=== PATIENT | female | born 1980 | race African-American/Black ===

== ENCOUNTER 2016-08-23 09:10 | Observation (INO) | payer MEDICAID ==
[2016-08-23] VITALS (9 sets, daily range): BP systolic 159–204; BP diastolic 79–149; PULSE 89–102; RESP 17–18; TEMP 96.7–98.8; O2SAT 95–99
[~2016-08-23] VITALS: Ht 177.8 cm; Wt 64.0 kg
[~2016-08-23 09:10] MED LIST: 1-ME1LIQ PO; BENA25TA8 PO; METH4TAB6 PO; METO100T PO; MMW SS; PRED50TA PO; RANI150 PO
[2016-08-23] MEDS ORDERED: hydrALAZINE HCL 20 MG/ML VIAL IV PUSH ONE (09:30)
[2016-08-23] MEDS ORDERED: ASPIRIN 325 MG TAB PO ONE (09:30)
[2016-08-23] MEDS ORDERED: NITROGLYCERIN 0.4 MG SL 25 TABS/BTL SL PRN ×2 (09:30→13:30)
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
--- NOTE | 2016-08-23 09:53 | RADRPT ---
EXAM DATE/TIME: 08/23/2016 09:31 [facility] COMPARISON: No previous studies available for comparison. INDICATIONS : Cough. Short of breath. MEDICAL HISTORY : None. SURGICAL HISTORY : None. ENCOUNTER: Initial ACUITY: 2 days PAIN SCORE: 0/10 LOCATION: Bilateral chest FINDINGS: A single view of the chest demonstrates the lungs to be symmetrically aerated with prominent anterior disc into interstitial markings suggesting some degree of vascular congestion or volume overload. He art size is prominent. Osseous structures are intact. CONCLUSION: 1. Cardiomegaly with interstitial prominence characteristic of vascular congestion or volume overload /CHF. 2. No confluent infiltrate Hiren Herrera MD on August 23, 2016 at 9:50 Board Certified Radiologist. This report was verified electronically.
[2016-08-23 09:56] LABS: AUTOMATED NEUTROPHIL # 6.9 TH/MM3 (1.8-7.7); BACTERIA, URINE OCC /hpf; BASOPHIL % 0.4 % (0.0-2.0); BLOOD, URINE NEG (NEG); COMMENT (UR) CULT NOT INDICATED; CULTURE IF INDICATED CULT NOT INDICATED; EOSINOPHIL % 0.4 % (0.0-4.0); GLUCOSE,URINE NEG (NEG); HEMATOCRIT 37.4 % (35.0-46.0); KETONE, URINE 10 mg/dL (NEG); LYMPH % 12.1 % (9.0-44.0); LYMPHOCYTE # 1.1 TH/MM3 (1.0-4.8); MEAN CELL VOLUME 81.6 FL (80.0-100.0); MEAN CORPUSCULAR HEMOGLOBIN 26.8 PG (27.0-34.0); MEAN CORPUSCULAR HGB CONC 32.9 % (32.0-36.0); MONO % 7.2 % (0.0-8.0); NEUT % 79.9 % (16.0-70.0); NITRITE,URINE NEG (NEG); PLATELET COUNT 206 TH/MM3 (150-450); RED BLOOD COUNT 4.59 MIL/MM3 (4.00-5.30); RED CELL DISTRIBUTION WIDTH 17.7 % (11.6-17.2); SQUAMOUS EPITHELIAL CELL URINE 4 /hpf (0-5); URINE COLOR LIGHT-YELLOW (YELLW/STRAW); WHITE BLOOD COUNT 8.7 TH/MM3 (4.0-11.0)
[2016-08-23 10:03] LABS: HEMO FLAGS AUTO DIFF
[2016-08-23 10:06] LABS: PROTHROMBIN TIME - PATIENT 11.1 SEC (9.8-11.6)
[2016-08-23] MEDS ORDERED: MORPHINE SULFATE 4 MG/ML INJ IV PUSH ONE (10:15)
[2016-08-23] MEDS: SODIUM CHLORIDE 0.9% FLUSH 5 ML FLUSH IVF PRN ×2 (10:22→10:53)
[2016-08-23 10:28] LABS: BICARBONATE 22.5 MEQ/L (21.0-32.0); INDIRECT BILIRUBIN 0.4 MG/DL (0.0-0.8); TOTAL BILIRUBIN ADULT 0.5 MG/DL (0.2-1.0)
[2016-08-23 10:41] LABS: PLATELET ESTIMATE SMEAR NORMAL (NORMAL); PLATELET MORPHOLOGY ENLARGED (NORMAL); SCAN/DIFF AUTO DIFF CONFIRMED
[2016-08-23] MEDS ORDERED: FUROSEMIDE 40 MG/4 ML VIAL IV PUSH ONE (11:00)
[2016-08-23] MEDS ORDERED: IOHEXOL 350 MG/ML 10 ML VIAL (for RAD DIAG) IV ONE ×2 (11:12→17:51)
--- NOTE | 2016-08-23 13:06 | RADRPT ---
EXAM DATE/TIME: 08/23/2016 10:52 [facility] COMPARISON: CHEST SINGLE AP, August 23, 2016, 9:31. INDICATIONS : Right upper and lower abdominal pain x 1 week. IV CONTRAST: 70 cc Omnipaque 350 (iohexol) IV ORAL CONTRAST: No oral contrast ingested. RADIATION DOSE: 4.58 CTDIvol (mGy) MEDICAL HISTORY : Hepatitis C. Hypertension. SURGICAL HISTORY : None. ENCOUNTER: Initial ACUITY: 1 week PAIN SCALE: 5/10 LOCATION: Right abdomen TECHNIQUE: Volumetric scanning of the abdomen and pelvis was performed. Using automated exposure control and ad justment of the mA and/or kV according to patient size, radiation dose was kept as low as reasonably achievable to obtain optimal diagnostic quality images. FINDINGS: LOWER LUNGS: There is a small right pleural effusion. LIVER: Homogeneous density without lesion. There is no dilation of the biliary tree. No calcified [place] es. SPLEEN: Normal size without lesion. PANCREAS: Within normal limits. KIDNEYS: Normal in size and shape. There is no mass, stone or hydronephrosis. ADRENAL GLANDS: Within normal limits. VASCULAR: There is no aortic aneurysm. BOWEL/MESENTERY: The stomach, small bowel, and colon demonstrate no acute abnormality. There is no free intraperitone al air or fluid. The appendix is seen and appears normal. ABDOMINAL WALL: Within normal limits. RETROPERITONEUM: There is no lymphadenopathy. BLADDER: No wall thickening or mass. REPRODUCTIVE: Peripherally calcified masses involving the uterus consistent with fibroids. Small volume of probable physiologic pelvic fluid INGUINAL: There is no lymphadenopathy or hernia. MUSCULOSKELETAL: Within normal limits for patient age. CONCLUSION: Right pleural effusion. Fibroid uterus. Probable physiologic free pelvic fluid. Nicolas Rhodes MD on August 23, 2016 at 12:56 Board Certified Radiologist. This report was verified electronically.
[2016-08-23] MEDS ORDERED: ONDANSETRON HCL 4 MG/2 ML VIAL IV PRN (13:30)
[2016-08-23] MEDS ORDERED: ACETAMINOPHEN 500 MG CPLT PO PRN (13:30)
[2016-08-23] MEDS ORDERED: amLODIPine BESYLATE 5 MG TAB PO ONE ×2 (13:30→16:30)
[2016-08-23] MEDS: SODIUM CHLORIDE 0.9% FLUSH 5 ML FLUSH IVF SCH (13:48)
--- NOTE | 2016-08-23 14:19 | EKG ---
Date Performed: 08/23/2016 Time Performed: 09:44:48 PTAGE: 35 years EKG: Sinus rhythm POSSIBLE LEFT ATRIAL ENLARGEMENT NONSPECIFIC ST & T-WAVE ABNORMALITY ABNORMAL ECG INTERPRETATION BAS ED ON A DEFAULT AGE OF 41 YEARS PREVIOUS TRACING : 11/10/2013 08.22 Compared to prior tracing no significant change DOCTOR: Randy Saini Interpretating Date/Time 08/23/2016 14:16:54
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
[2016-08-23] MEDS ORDERED: POTASSIUM CHLORIDE 20 MEQ CONTROLLED RELEASE TAB PO ONE (16:00)
[2016-08-23] MEDS ORDERED: cloNIDine HCL 0.2 MG TAB PO PRN (16:30)
[2016-08-23] MEDS ORDERED: NORA0.35 PO (16:57)
[2016-08-23] MEDS: LISINOPRIL 10 MG TAB PO SCH (16:58)
[2016-08-23 17:04] LABS: BETA HCG QUANT LESS THAN 1 MIU/ML (0-5)
[2016-08-23] MEDS ORDERED: LORazepam 2 MG TAB PO PRN (17:15)
[2016-08-23] MEDS ORDERED: HALOPERIDOL LACTATE 5 MG/ML AMP IM PRN (17:15)
[2016-08-23] MEDS ORDERED: LORazepam 2 MG/ML VIAL IV PUSH PRN ×4 (17:15)
[2016-08-23] MEDS ORDERED: LORazepam 1 MG TAB PO PRN (17:15)
[2016-08-23] MEDS ORDERED: FLUMAZENIL 0.5 MG/5 ML VIAL IV PUSH PRN (17:15)
--- NOTE | 2016-08-23 18:02 | RADRPT ---
EXAM DATE/TIME: 08/23/2016 17:42 [facility] COMPARISON: No previous studies available for comparison. INDICATIONS : Cheat pain. Evaluate for emboli. eLEVATED d-dIMER. IV CONTRAST: 50 cc Omnipaque 350 (iohexol) IV RADIATION DOSE: 5.21 CTDIvol (mGy) MEDICAL HISTORY : Cardiovascular disease. Hypertension. Hepatitis C. SURGICAL HISTORY : None. ENCOUNTER: Initial ACUITY: 1 day PAIN SCALE: 0/10 LOCATION: chest TECHNIQUE: Volumetric scanning of the chest was performed using a pulmonary embolism protocol MIP images were re constructed. Using automated exposure control and adjustment of the mA and/or kV according to patien t size, radiation dose was kept as low as reasonably achievable to obtain optimal diagnostic quality images. FINDINGS: PULMONARY ARTERIES: No filling defects are seen in the pulmonary arteries through the segmental level. LUNGS: There is no consolidation or pneumothorax . No concerning pulmonary nodule is visualized. PLEURAE: Minimal pleural thickening posteriorly in the right mid hemithorax. MEDIASTINUM: There is good visualization of the great vessels of the middle mediastinum. No evidence of mediastin al or hilar adenopathy/mass. MUSCULOSKELETAL: Within normal limits for patient age. MISCELLANEOUS: The visualized upper abdominal organs demonstrate no acute abnormality. CONCLUSION: 1. Minimal, nonspecific pleural thickening in the right posterior hemithorax. 2. Otherwise negative. No acute infiltrates or pulmonary embolus to explain current clinical symptoms . Hiren Herrera MD on August 23, 2016 at 17:58 Board Certified Radiologist. This report was verified electronically.
[2016-08-23 18:30] LABS: AMPHETAMINE, URINE NEG (NEG); BARBITURATES, URINE NEG (NEG); COCAINE, URINE POS (NEG)
[2016-08-24] VITALS (9 sets, daily range): BP systolic 134–170; BP diastolic 74–121; PULSE 84–94; RESP 18–19; TEMP 97.5–98.9; O2SAT 95–100
[2016-08-24 05:06] LABS: BICARBONATE 24.3 MEQ/L (21.0-32.0); POTASSIUM 3.7 MEQ/L (3.5-5.1)
[2016-08-24] MEDS: LISINOPRIL 10 MG TAB PO SCH (08:01)
[2016-08-24] MEDS: SODIUM CHLORIDE 0.9% FLUSH 5 ML FLUSH IVF SCH (08:02)
--- NOTE | 2016-08-24 08:59 | PD.CARD.PN ---
Subjective Subjective Remarks Offers no complaint. Feeling better. Objective Vital Signs / I&O Vital Signs Date Time Temp Pulse Resp B/P Pulse Ox O2 Delivery O2 Flow Rate FiO2 08/24/16 08:18 95 Nasal Cannula 2.00 08/24/16 07:38 98.9 91 19 162/112 95 158/100 08/24/16 04:25 84 08/24/16 03:59 97.8 89 18 147/87 98 08/24/16 00:16 98.0 87 18 134/74 97 08/24/16 00:04 94 08/23/16 20:15 89 08/23/16 19:28 98 Nasal Cannula 2.00 08/23/16 19:20 98.8 101 18 159/79 98 08/23/16 18:20 102 08/23/16 16:21 94 174/119 08/23/16 16:17 96.7 90 18 170/112 99 08/23/16 16:04 97 Nasal Cannula 2 08/23/16 15:45 164/79 08/23/16 10:45 98.4 94 194/149 Nasal Cannula 2 08/23/16 09:15 98.2 94 17 204/149 95 Physical Exam Gen.: No apparent distress. Cardiac: Regular rate and rhythm without murmur gallop or rub. Respiratory: Clear to auscultate bilaterally. GI: Nontender. Normal bowel sounds. Abdomen soft. Laboratory Laboratory Tests Test 08/23/16 08/23/16 08/23/16 08/23/16 09:30 11:10 14:00 15:05 White Blood Count 8.7 TH/MM3 Red Blood Count 4.59 MIL/MM3 Hemoglobin 12.3 GM/DL Hematocrit 37.4 % Mean Corpuscular Volume 81.6 FL Mean Corpuscular Hemoglobin 26.8 PG Mean Corpuscular Hemoglobin 32.9 % Concent Red Cell Distribution Width 17.7 % Platelet Count 206 TH/MM3 Mean Platelet Volume 9.2 FL Neutrophils (%) (Auto) 79.9 % Lymphocytes (%) (Auto) 12.1 % Monocytes (%) (Auto) 7.2 % Eosinophils (%) (Auto) 0.4 % Basophils (%) (Auto) 0.4 % Neutrophils # (Auto) 6.9 TH/MM3 Lymphocytes # (Auto) 1.1 TH/MM3 Monocytes # (Auto) 0.6 TH/MM3 Eosinophils # (Auto) 0.0 TH/MM3 Basophils # (Auto) 0.0 TH/MM3 CBC Comment AUTO DIFF Differential Comment AUTO DIFF CONFIRMED Platelet Estimate NORMAL Platelet Morphology Comment ENLARGED Prothrombin Time 11.1 SEC Prothromb Time International 1.0 RATIO Ratio Activated Partial 24.0 SEC Thromboplast Time Urine Color LIGHT-YELLOW Urine Turbidity CLEAR Urine pH 7.0 Urine Specific [place] 1.008 Urine Protein NEG mg/dL Urine Glucose (UA) NEG mg/dL Urine Ketones 10 mg/dL Urine Occult Blood NEG Urine Nitrite NEG Urine Bilirubin NEG Urine Urobilinogen LESS THAN 2.0 MG/DL Urine Leukocyte Esterase SMALL Urine RBC LESS THAN 1 /hpf Urine WBC 4 /hpf Urine Squamous Epithelial 4 /hpf Cells Urine Bacteria OCC /hpf Microscopic Urinalysis Comment CULT NOT INDICATED Sodium Level 135 MEQ/L Potassium Level 6.0 MEQ/L 3.4 MEQ/L Chloride Level 103 MEQ/L Carbon Dioxide Level 22.5 MEQ/L Anion Gap 10 MEQ/L Blood Urea Nitrogen 12 MG/DL Creatinine 0.82 MG/DL Estimat Glomerular Filtration 97 ML/MIN Rate Random Glucose 87 MG/DL Calcium Level 9.1 MG/DL Total Bilirubin 0.5 MG/DL Direct Bilirubin 0.1 MG/DL Indirect Bilirubin 0.4 MG/DL Aspartate Amino Transf 59 U/L (AST/SGOT) Alanine Aminotransferase 34 U/L (ALT/SGPT) Alkaline Phosphatase 97 U/L Troponin I 0.03 NG/ML 0.02 NG/ML B-Type Natriuretic Peptide 358 PG/ML Total Protein 7.6 GM/DL Albumin 3.6 GM/DL Lipase 66 U/L Urine Opiates Screen NEG Urine Barbiturates Screen NEG Urine Amphetamines Screen NEG Urine Benzodiazepines Screen NEG Urine Cocaine Screen POS Urine Cannabinoids Screen NEG Human Chorionic Gonadotropin, LESS THAN 1 Quant MIU/ML Ethyl Alcohol Level LESS THAN 3 MG/DL D-Dimer Quantitative (PE/DVT) 0.85 MG/L FEU Test 08/23/16 08/23/16 08/24/16 17:10 19:00 04:15 Troponin I 0.03 NG/ML Erythrocyte Sedimentation Rate 1 mm/hr Sodium Level 142 MEQ/L Potassium Level 3.7 MEQ/L Chloride Level 108 MEQ/L Carbon Dioxide Level 24.3 MEQ/L Anion Gap 10 MEQ/L Blood Urea Nitrogen 12 MG/DL Creatinine 0.88 MG/DL Estimat Glomerular Filtration 89 ML/MIN Rate Random Glucose 74 MG/DL Calcium Level 9.2 MG/DL Imaging Last 48 hours Impressions Abdomen/Pelvis CT 08/23/16 0922 Signed Impressions: Service Date/Time: Tuesday, August 23, 2016 10:52 - CONCLUSION: Right pleural effusion. Fibroid uterus. Probable physiologic free pelvic fluid. Nicolas Rhodes MD Chest X-Ray 08/23/16 0000 Signed Impressions: Service Date/Time: Tuesday, August 23, 2016 09:31 - CONCLUSION: 1. Cardiomegaly with interstitial prominence characteristic of vascular congestion or volume overload/CHF. 2. No confluent infiltrate Hiren Herrera MD CT Angiography 08/23/16 0000 Signed Impressions: Service Date/Time: Tuesday, August 23, 2016 17:42 - CONCLUSION: 1. Minimal, nonspecific pleural thickening in the right posterior hemithorax. 2. Otherwise negative. No acute infiltrates or pulmonary embolus to explain current clinical symptoms. Hiren Herrera MD Assessment and Plan Assessment and Plan * Chest pain: Patient had serial cardiac enzymes and EKGs for ruling out purposes. She is asymptomatic. EKGs are nonspecific T wave changes. She was seen by Dr. Orozco this morning. A 2-D echo is ordered as well as a Lexiscan. Disposition will be pending these results. She should follow with her primary care physician after discharge. * Hypertension: Patient was noncompliant with her medications. We will restart these. * Substance abuse: Patient has been counseled on importance of no longer using cocaine. * Tobacco abuse: Patient has been counseled on the importance of smoking cessation. Patient is stable at this time. She is agreeable to this plan. 2-D echo has been read and report states left ventricle cavity size mildly to moderately dilated. Wall thickness was normal. Ejection fraction 25-30%. Diffuse hypokinesis, more pronounced in the inferior septal and anterior regions. Mild mitral valve regurgitation. Trace to mild tricuspid valve regurgitation. Lexiscan has been read by radiologist as global hypokinesis with left ventricular ejection fraction equaling 30%. Small fixed defect involving the cardiac apex ingesting a small LAD infarct. No reversible defects to suggest ischemia. These findings were discussed with Dr. Orozco. Medical management will be utilized and she will need to follow-up with a primary care physician as well as a tribal judge. We will increase lisinopril to 20 mg daily. Lasix 40 mg daily and K-Tabs 20 mEq daily. Would like to start on carvedilol however she has been using cocaine. Dr. Jay Trejo has agreed to follow the patient after discharge. Hopefully on follow-up evaluation she will have been able to stop using cocaine and maybe start beta jinny. She has been advised to modify her lifestyle. She is to stopping alcohol, stop smoking cigarettes, and no longer use illicit drugs. Joe Shepherd Aug 24, 2016 08:58
[2016-08-24] MEDS ORDERED: ASPIRIN 325 MG TAB PO SCH (09:00)
--- NOTE | 2016-08-24 10:40 | EC ---
Study Study Date:08/24/2016 STUDY CONCLUSIONS SUMMARY - Procedure narrative: Transthoracic echocardiography. Image quality was adequate. Scanning was performed from the parasternal, apical, and subcostal acoustic windows. - Left ventricle: The cavity size was mildly to moderately dilated. Wall thickness was normal. Systolic function was severely reduced. The estimated ejection fraction was in the range of 25% to 30%. Diffuse hypokinesis, more pronounced in the inferior, septal and anterior regions.. - Mitral valve: Mild regurgitation. - Tricuspid valve: Trace to mild regurgitation. - Pulmonary arteries: PA peak pressure: 41mm Hg (S). If LV function is below 40, please consider prescribing an ACEI or ARB or document rationale for non-use. PROCEDURE DATA STUDY STATUS: Elective. Procedure: Transthoracic echocardiography. Image quality was adequate. Scanning was performed from the parasternal, apical, and subcostal acoustic windows. Study completion: The patient tolerated the procedure well. Transthoracic echocardiography. M-mode, complete 2D, complete spectral Doppler, and color Doppler. Patient status: Inpatient. CARDIAC ANATOMY LEFT VENTRICLE: The cavity size was mildly to moderately dilated. Wall thickness was normal. Systolic function was severely reduced. The estimated ejection fraction was in the range of 25% to 30%. Diffuse hypokinesis, more pronounced in the inferior, septal and anterior regions.. AORTIC VALVE: Trileaflet; normal thickness leaflets. Doppler: Transvalvular velocity was within the normal range. There was no stenosis. No regurgitation. AORTA: Aortic root: The aortic root was normal in size. MITRAL VALVE: Structurally normal valve. Doppler: Transvalvular velocity was within the normal range. There was no evidence for stenosis. Mild regurgitation. Peak gradient: 2mm Hg (D). LEFT ATRIUM: The atrium was normal in size. RIGHT VENTRICLE: The cavity size was normal. Wall thickness was normal. PULMONIC VALVE: Doppler: Transvalvular velocity was within the normal range. There was no evidence for stenosis. No regurgitation. TRICUSPID VALVE: Structurally normal valve. Doppler: Transvalvular velocity was within the normal range. Trace to mild regurgitation. PULMONARY ARTERY: The main pulmonary artery was normal-sized. Systolic pressure was within the normal range. RIGHT ATRIUM: The atrium was normal in size. PERICARDIUM: There was no pericardial effusion. SYSTEMIC VEINS: Inferior vena cava: The vessel was normal in size. BASIC MEASUREMENTS ADULT Normal Left ventricle LV internal dimension, ED, chordal level, *60.2 mm 43-52 PLAX LV internal dimension, ES, chordal level, *54 mm 23-38 PLAX Fractional shortening, chordal level, PLAX *10 % >29 LV posterior wall thickness, ED 11.1 mm IVS/LVPW ratio, ED 1.01 <1.3 Volume, ED, MOD, 1-plane 161 ml Volume, ES, MOD, 1-plane 103 ml Ejection fraction, MOD, 1-plane 36 % Stroke volume, MOD, 1-plane 58 ml Volume, ED, MOD, 2-plane 176 ml Volume, ES, MOD, 2-plane 105 ml Ejection fraction, MOD, 2-plane 40 % Stroke volume, MOD, 2-plane 71 ml Ventricular septum Septal thickness, ED 11.2 mm Aortic valve Leaflet separation 22 mm 15-26 Left atrium Anterior-posterior dimension 42 mm Right ventricle RV internal dimension, ED, PLAX 25.7 mm 19-38 BASIC MEASUREMENTS ADULT Normal Aortic valve Leaflet separation 22 mm 15-26 Aorta Root diameter, ED 31 mm 20-37 DOPPLER MEASUREMENTS ADULT Normal Main pulmonary artery Pressure, S *41 mm Hg =30 Mitral valve Peak E-wave velocity 78.5 cm/s Peak A-wave velocity 50.3 cm/s Peak gradient, D 2 mm Hg Peak E/A ratio 1.6 Tricuspid valve Regurgitant peak velocity 278 cm/s Peak RV-RA gradient, S 31 mm Hg Maximal regurgitant velocity 278 cm/s Systemic veins Estimated CVP 10 mm Hg Right ventricle RV pressure, S *41 mm Hg <30 LEGEND: Mean values are shown as u=mean value. Asterisk (*) quick values outside specified normal range. Prepared and signed by Mahendra Adams [id number]
[2016-08-24] MEDS ORDERED: REGADENOSON INJ 0.4 MG/5 ML SYR ONE (12:03)
--- NOTE | 2016-08-24 14:26 | RADRPT ---
EXAM DATE/TIME: 08/24/2016 11:31 [facility] COMPARISON: No previous studies available for comparison. INDICATIONS : Shortness of breath with chest tightness for two weeks. Angina. DOSE: 27.1 mCi Tc99m Myoview at stress. 8.8 mCi Tc99m Myoview at rest. 0.4 mg Lexiscan STRESS SYMPTOMS: Dyspnea and headache. EJECTION FRACTION: 30% MEDICAL HISTORY : Hypertension. Hepatitis C. SURGICAL HISTORY : None. ENCOUNTER: Initial ACUITY: 3 weeks PAIN SCALE: 4/10 LOCATION: Bilateral chest TECHNIQUE: The patient underwent pharmacologic stress with infusion of prescribed dose. Continuous ECG tracing was monitored during stress. Gated SPECT imaging was performed after stress and conventional SPECT i maging was performed at rest. The examination was performed on a SPECT/CT scanner, both attenuation and non-corrected datasets were reviewed. FINDINGS: The gated Cine-loop images demonstrate global hypokinesis. The left ventricular ejection fraction is calculated at 30%. The cardiac SPECT stress and rest images demonstrate a small fixed defect involving the cardiac apex suggesting possible small apical infarct. No reversible defects are noted to suggest ischemia. CONCLUSION: 1. Global hypokinesis with left ventricular ejection fraction equaling 30%. 2. Small fixed defect involving the cardiac apex suggesting a small LAD infarct. 3. No reversible defects to suggest ischemia. RISK CATEGORY: High risk (greater than 3% annual mortality rate). Cruz Tim MD on August 24, 2016 at 14:04 Board Certified Radiologist. This report was verified electronically.
[2016-08-24] MEDS ORDERED: FURO1TAB60 PO (16:49)
[2016-08-24] MEDS ORDERED: POTA1TAB4 PO (16:49)
[2016-08-24] MEDS ORDERED: LISI-515 PO (16:49)
--- NOTE | 2016-08-24 16:51 | EKG ---
Date Performed: 08/23/2016 Time Performed: 18:10:35 PTAGE: 35 years EKG: Sinus rhythm POSSIBLE LEFT ATRIAL ENLARGEMENT NONSPECIFIC ST & T-WAVE ABNORMALITY ABNORMAL ECG Since PREVIOUS TRACING , no significant change noted PREVIOUS TRACIN08/23/2016 09.44 DOCTOR: Joi Orozco Interpretating Date/Time 08/24/2016 16:51:03
--- NOTE | 2016-08-24 16:55 | TR ---
Date Performed: 08/24/2016 Time Performed: 12:12:08 DOCTOR: Joi Orozco DRUG LIST: CLINICAL HISTORY: REASON FOR TEST: REASON FOR ENDING: OBSERVATION: CONCLUSION: Lexiscan stress test was performed under standard four minute protocol. Radionuclid e was injected one minute prior to ending the test. No electrocardiographic abormalities were present to suggest ischemia. Nuclear imaging and interpretation are pending. COMMENTS:
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
== END 2016-08-24 19:02 | disposition home or self-care (01) ==
LOC: NEPA 09:10 → NEDA 12:25 → NEPGCP 16:09
PROVIDERS: ADMIT Internal Medicine Cardiovascular Disease; ATTEND Internal Medicine Cardiovascular Disease
DX: R07.9 Chest pain, unspecified (principal); I10 Essential (primary) hypertension; B19.20 Unspecified viral hepatitis C without hepatic coma; R06.02 Shortness of breath; F17.210 Nicotine dependence, cigarettes, uncomplicated; R05 Cough; R10.9 Unspecified abdominal pain; I50.9 Heart failure, unspecified; R00.2 Palpitations; Z91.14 Patient's other noncompliance with medication regimen; H54.8 Legal blindness, as defined in USA; F14.90 Cocaine use, unspecified, uncomplicated; F10.10 Alcohol abuse, uncomplicated; I34.0 Nonrheumatic mitral (valve) insufficiency
CPT/HCPCS: 71010; 71275; 74177; 78452; 80048; 80076; 80307; 81001; 83690; 83880; 84132; 84484; 84702; 84703; 85025; 85379; 85610; 85652; 85730; 93005; 93017; 93306; 96374; 96375; 99285; A9502; G0378; J0360; J1940; J2270; J2785; Q9967

== ENCOUNTER 2016-10-23 08:17 | Inpatient (IN) | payer MEDICAID ==
[~2016-10-23] VITALS: Ht 177.8 cm; Wt 64.8 kg
[2016-10-23] VITALS (9 sets, daily range): BP systolic 137–168; BP diastolic 84–110; PULSE 70–86; RESP 16–18; TEMP 96.5–98.9; O2SAT 98–100
[~2016-10-23 08:17] MED LIST changes: -1-ME1LIQ PO; -BENA25TA8 PO; +FURO1TAB60 PO; +LISI-515 PO; -METH4TAB6 PO; -METO100T PO; -MMW SS; +NORA0.35 PO; +POTA1TAB4 PO; -PRED50TA PO; -RANI150 PO
[2016-10-23] MEDS ORDERED: CARV12.52 PO (08:32)
[2016-10-23] MEDS ORDERED: KETOROLAC TROMETHAMINE 30 MG/ML (IVP) VIAL IVP ONE (08:45)
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
[2016-10-23] MEDS: SODIUM CHLORIDE 0.9% FLUSH 10 ML FLUSH IV FLUSH PRN ×3 (08:51→13:05)
[2016-10-23 09:19] LABS: AUTOMATED NEUTROPHIL # 22.7 TH/MM3 (1.8-7.7); BASOPHIL # 0.1 TH/MM3 (0-0.2); BASOPHIL % 0.2 % (0.0-2.0); HEMO FLAGS DIFF FINAL; LYMPHOCYTE # 1.8 TH/MM3 (1.0-4.8); MEAN CELL VOLUME 80.9 FL (80.0-100.0); MEAN CORPUSCULAR HGB CONC 32.1 % (32.0-36.0); MONO % 5.3 % (0.0-8.0); NEUT % 87.5 % (16.0-70.0); PLATELET COUNT 235 TH/MM3 (150-450); RED CELL DISTRIBUTION WIDTH 17.9 % (11.6-17.2)
[2016-10-23 09:33] LABS: BACTERIA, URINE OCC /hpf; BLOOD, URINE NEG (NEG); COMMENT (UR) CULTURE INDICATED; CULTURE IF INDICATED CULTURE INDICATED; GLUCOSE,URINE NEG (NEG); KETONE, URINE NEG (NEG); MUCUS URINE FEW /lpf (OCC); NITRITE,URINE NEG (NEG); SQUAMOUS EPITHELIAL CELL URINE 7 /hpf (0-5); URINE COLOR YELLOW (YELLW/STRAW)
[2016-10-23 09:52] LABS: ALKALINE PHOSPHATASE 96 U/L (45-117); ALT (GPT) 28 U/L (10-53); ANION GAP 10 MEQ/L (5-15); AST (GOT) 35 U/L (15-37); BLOOD UREA NITROGEN 7 MG/DL (7-18); CHLORIDE 102 MEQ/L (98-107); GLOMERULAR FILTRATION RATE 79 ML/MIN (>89); POTASSIUM 4.4 MEQ/L (3.5-5.1); SODIUM (NA) 136 MEQ/L (136-145); TOTAL BILIRUBIN ADULT 0.7 MG/DL (0.2-1.0)
[2016-10-23] MEDS ORDERED: metroNIDAZOLE 500 MG TAB PO ONE (10:00)
[2016-10-23] MEDS ORDERED: AZITHROMYCIN PWD FOR SUSP 1 GM PACKET PO ONE (10:00)
[2016-10-23] MEDS ORDERED: MORPHINE SULFATE 8 MG/ML INJ IV PUSH ONE (11:15)
[2016-10-23] MEDS ORDERED: ONDANSETRON HCL 4 MG/2 ML VIAL IV PUSH ONE (11:45)
[2016-10-23] MEDS ORDERED: SODIUM CHLOR 0.9% 1000 ML INJ 1,000 ML IV ONE (12:15)
[2016-10-23 12:17] LABS: CHLAMYDIA PCR NOT DETECTED (NOT DETECT); NEISSERIA PCR DETECTED (NOT DETECT)
--- NOTE | 2016-10-23 12:43 | RADRPT ---
EXAM DATE/TIME: 10/23/2016 11:09 [facility] COMPARISON: No previous studies available for comparison. INDICATIONS : Pelvic pain. MEDICAL HISTORY : Hypertension. Congestive heart failure. Hepatitis C. Left glaucoma. Fibroids. SURGICAL HISTORY : Left eye tube shunt placement. Liver biopsy. ENCOUNTER: Initial ACUITY: 2 days PAIN SCORE: 8/10 LOCATION: Bilateral pelvis MEASUREMENTS: UTERUS: 8.2 x 5.3 x 3.3 cm ENDOMETRIAL STRIPE: 6 mm RIGHT OVARY: 3.7 x 1.8 x 1.2 cm LEFT OVARY: 5.1 x 3.1 x 3.0 cm COMPLETE APPROPRIATE ITEMS PRE PROCEDURE: ID x 2: Complete NameDate of BirthPatient Name Band Education: Nurse/Technologist explained proced ure to patient/family. Patient/family demonstrates understanding of procedure. FINDINGS: UTERUS: 4.7 x 4.6 x 3.7 cm calcified mass is seen extending anteriorly off of the uterus correlating with ca lcified fibroid identified on prior CT. 1.4 cm fibroid is seen in the posterior fundus. RIGHT OVARY: Ovary contains no mass or significant cystic lesion. LEFT OVARY: 3.1 cm simple cyst and the left ovary. MISCELLANEOUS: No free fluid. CONCLUSION: 1. 3.1 cm simple left ovarian cyst. 2. Multiple uterine fibroids. Harvinder Rudd MD on October 23, 2016 at 12:36 Board Certified Radiologist. This report was verified electronically.
--- NOTE | 2016-10-23 16:42 | HHI.HP ---
HPI Chief Complaint Abdominal pain Date Seen: October 23, 2016 Time Seen: 16:12 Travel History International Travel<30 Days: No Contact w/Intl Traveler<30Days: No Known Affected Area: No History of Present Illness HPI 35-year-old 6 para 1 AB 5 with last menstrual period 1 week ago who presented to the emergency room today with left lower quadrant abdominal pain. Patient states that she had this pain first last week and it resolved. It began again today and has been unrelenting. She associates nausea without vomiting. She denies any diarrhea, constipation, change in color or caliber of stool. No dysuria hematuria or frequency. She has found no alleviating measures and reports that the pain is increased with movement or examination of her abdomen. Para: 1 : 6 Last Menstrual Period: October 16, 2016 Miscarriage: 0 : 5 History Past Medical History Narrative Medical The patient reports a history of hepatitis C. Patient reports having been diagnosed with congestive heart failure 1 month ago and she is followed by Dr. Trejo with cardiology. She has been on Lasix, lisinopril and a third cardiac medicine that she cannot recall. She denies any current symptoms consistent with congestive heart failure episodes she has had in the past. Obstetric History Obstetric History One prior vaginal delivery, 5 induced abortions The patient reports a history of regular periods currently on an oral contraceptive. 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 Past Surgical History Narrative Surgical Liver biopsy for hepatitis C Family History Narrative Family History Positive for hypertension, diabetes Social History Narrative Social History Single and unemployed mother: Alcohol Use: Yes Tobacco Use: Yes Substance Abuse: No Allergies-Medications (Allergen,Severity, Reaction): Coded Allergies: Amoxicillin (Verified Allergy, Severe, RASH, 10/23/16) Penicillin (Verified Allergy, Severe, hives, 10/23/16) Home Meds Active Scripts Lisinopril 20 Mg Tab20 Mg PO DAILY #30 TAB Ref 0 Prov:Joe Shepherd 08/24/16 Potassium Chloride ER (K-Tab)20 Meq Tab20 Meq PO DAILY #30 TAB Ref 0 Prov:Joe Shepherd 08/24/16 Furosemide (Lasix)40 Mg Tab40 Mg PO DAILY #30 TAB Ref 0 Prov:Joe Shepherd 08/24/16 Reported Medications Carvedilol 12.5 Mg Tab12.5 Mg PO BID #60 TAB Ref 0 10/23/16 Norethindrone (Quita-Be-35)0.35 Mg Tab1 Tab PO DAILY #1 PACK Ref 0 08/23/16 Review of Systems General / Constitutional: No: Fever, Weight Loss, Chills Eyes: No: Pain HENT: No: Lightheadedness Cardiovascular: No: Chest Pain or Discomfort, Palpitations, Syncope, Edema, Cyanosis Respiratory: No: Cough, Short of Breath Gastrointestinal: Nausea, Abdominal Pain, No: Diarrhea, Hematochezia, Constipation, Changes in Bowel Habits Genitourinary: No: Decreased Urinary Output, Oliguria Skin: No Rash, No Itching, No Change in Nails Neurologic: No: Weakness, Dizziness, Syncope Physical Exam Vital Signs Date Time Temp Pulse Resp B/P Pulse Ox O2 Delivery O2 Flow Rate FiO2 10/23/16 15:23 98.2 84 16 152/87 98 Room Air 10/23/16 13:30 98.6 84 17 157/86 99 Room Air 10/23/16 11:21 97.8 78 17 159/91 98 Room Air 10/23/16 11:20 17 10/23/16 10:00 98.0 79 17 155/88 99 Room Air 10/23/16 09:50 16 10/23/16 08:46 16 98 Room Air 10/23/16 08:41 97.8 77 16 161/100 98 Room Air Narrative GENERAL: Well-nourished, well-developed patient. SKIN: Warm and dry. HEAD: Normocephalic and atraumatic. EYES: No scleral icterus. No injection or drainage. ENT: No nasal drainage noted. Mucous membranes pink. Airway patent. NECK: Supple, trachea midline. No JVD. CARDIOVASCULAR: Regular rate and rhythm without murmurs, gallops, or rubs. RESPIRATORY: Breath sounds equal bilaterally. No accessory muscle use. ABDOMEN/GI: Abdomen soft, tender in the lower abdomen without referral or rebound, bowel sounds present, no guarding Gravid to [-] weeks size Fundal Height: [-] GENITOURINARY: External Genitalia: intact and normal in appearance The pelvic exam was not repeated per the patient request following the examination by her emergency room physician which it are documented cervical motion tenderness Bedside ultrasound showed a simple 3 cm left ovarian cyst and fibroid uterus EXTREMITIES: No cyanosis or edema. No nailbed changes BACK: Nontender without obvious deformity. No CVA tenderness. NEUROLOGICAL: Awake and alert. Motor and sensory grossly within normal limits. Five out of 5 muscle strength in all muscle groups. Normal speech. Data Data Vital Signs Reviewed: Yes Orders Complete Blood Count With Diff (10/23/16 08:45) Comprehensive Metabolic Panel (10/23/16 08:45) Lipase (10/23/16 08:45) Urinalysis - C+S If Indicated (10/23/16 08:45) Iv Access Insert/Monitor (10/23/16 08:45) Ecg Monitoring (10/23/16 08:45) Oximetry (10/23/16 08:45) Sodium Chloride 0.9% Flush (Ns Flush) (10/23/16 08:45) Ketorolac Inj (Toradol Inj) (10/23/16 08:45) Ed Urine Pregnancytest Poc (10/23/16 08:45) Gc And Chlamydia Pcr (10/23/16 09:06) Wet Prep Profile (10/23/16 09:06) Urine Culture (10/23/16 08:45) Us Pelvis Comp W Transvaginal (10/23/16 ) Metronidazole (Flagyl) (10/23/16 10:00) Azithromycin Powd Pack (Zithromax Powd P (10/23/16 10:00) Morphine Inj (Morphine Inj) (10/23/16 11:15) Ondansetron Inj (Zofran Inj) (10/23/16 11:45) Sodium Chlor 0.9% 1000 Ml Inj (Ns 1000 M (10/23/16 12:15) Admit Order (Ed Use Only) (10/23/16 13:52) Labs Laboratory Tests Test 10/23/16 10/23/16 08:45 09:10 White Blood Count 26.0 Red Blood Count 4.70 Hemoglobin 12.2 Hematocrit 38.0 Mean Corpuscular Volume 80.9 Mean Corpuscular Hemoglobin 26.0 Mean Corpuscular Hemoglobin 32.1 Concent Red Cell Distribution Width 17.9 Platelet Count 235 Mean Platelet Volume 9.0 Neutrophils (%) (Auto) 87.5 Lymphocytes (%) (Auto) 7.0 Monocytes (%) (Auto) 5.3 Eosinophils (%) (Auto) 0.0 Basophils (%) (Auto) 0.2 Neutrophils # (Auto) 22.7 Lymphocytes # (Auto) 1.8 Monocytes # (Auto) 1.4 Eosinophils # (Auto) 0.0 Basophils # (Auto) 0.1 CBC Comment DIFF FINAL Differential Comment Urine Color YELLOW Urine Turbidity HAZY Urine pH 7.0 Urine Specific Jeff 1.011 Urine Protein NEG Urine Glucose (UA) NEG Urine Ketones NEG Urine Occult Blood NEG Urine Nitrite NEG Urine Bilirubin NEG Urine Urobilinogen LESS THAN 2.0 Urine Leukocyte Esterase LARGE Urine RBC 4 Urine WBC 33 Urine Squamous Epithelial 7 Cells Urine Bacteria OCC Urine Mucus FEW Microscopic Urinalysis Comment CULTURE INDICATED Sodium Level 136 Potassium Level 4.4 Chloride Level 102 Carbon Dioxide Level 24.0 Anion Gap 10 Blood Urea Nitrogen 7 Creatinine 0.98 Estimat Glomerular Filtration 79 Rate Random Glucose 111 Calcium Level 9.2 Total Bilirubin 0.7 Aspartate Amino Transf 35 (AST/SGOT) Alanine Aminotransferase 28 (ALT/SGPT) Alkaline Phosphatase 96 Total Protein 7.8 Albumin 3.4 Lipase 79 Clue Cells (Wet Prep) PRESENT Vaginal Trichomonas (Wet Prep) PRESENT Vaginal Yeast (Wet Prep) NONE SEEN Chlamydia trachomatis DNA NOT DETECTED (PCR) Neisseria gonorrhoeae DNA DETECTED (PCR) Date/Time Procedure Status Source Growth 10/23/16 08:45 Urine Culture Received Urine Clean Catch Pending Assessment/Plan Assessment and Plan Assessment: 35-year-old female with abdominal pain and positive gonorrhea PCR consistent with pelvic inflammatory disease #2 recent history of congestive heart failure admission without evidence of exacerbation. #3 history of hepatitis C Plan: Because of the patient's intractable pain and nausea she'll be admitted for inpatient therapy. The patient has a history of severe penicillin allergy but has tolerated cephalosporins in the past and will therefore be initiated with ceftriaxone 250 mg IM for gonorrhea treatment. Doxycycline 100 mg by mouth every 12 hours for 14 days Flagyl 500 mg IV Q6 HIV and RPR The patient does not have her control pills with her but says that she can get these delivered to the hospital and I have instructed her to do so so that she so that she can continue these while hospitalized. Pain medication and antiemetics as needed. Jensen Wooten MD October 23, 2016 16:41
[2016-10-23] MEDS ORDERED: ONDANSETRON ODT 4 MG TAB PO PRN (16:45)
[2016-10-23] MEDS ORDERED: SODIUM CHLORIDE 0.9% FLUSH 5 ML FLUSH IV FLUSH PRN (16:45)
[2016-10-23] MEDS ORDERED: metroNIDAZOLE 500 MG INJ 100 ML IV SCH (17:00)
[2016-10-23] MEDS: DOXYCYCLINE HYCLATE 100 MG CAP PO SCH (17:07)
[2016-10-23] MEDS: metroNIDAZOLE 500 MG INJ 100 ML IV SCH (17:07)
[2016-10-23] MEDS: ENOXAPARIN SODIUM 40 MG/0.4 ML SYRINGE SQ SCH (17:08)
[2016-10-23] MEDS: KETOROLAC TROMETHAMINE 60 MG/2 ML (IM) VIAL IM PRN (17:08)
[2016-10-23] MEDS ORDERED: cefTRIAXone 250 MG VIAL IM ONE (18:00)
[2016-10-23] MEDS ORDERED: LISINOPRIL 20 MG TAB PO ONE (19:15)
[2016-10-23] MEDS ORDERED: FUROSEMIDE 40 MG TAB PO ONE (19:15)
[2016-10-23] MEDS: SODIUM CHLORIDE 0.9% FLUSH 5 ML FLUSH IV FLUSH SCH (19:54)
[2016-10-24] VITALS (14 sets, daily range): BP systolic 158–182; BP diastolic 105–122; PULSE 55–84; RESP 17–18; TEMP 96.8–98.1; O2SAT 98–100
[2016-10-24] MEDS: metroNIDAZOLE 500 MG INJ 100 ML IV SCH ×3 (02:35→17:49)
[2016-10-24] MEDS: KETOROLAC TROMETHAMINE 60 MG/2 ML (IM) VIAL IM PRN (02:46)
[2016-10-24] MEDS: DOXYCYCLINE HYCLATE 100 MG CAP PO SCH ×2 (06:11→17:48)
[2016-10-24] MEDS: FUROSEMIDE 40 MG TAB PO SCH (07:42)
[2016-10-24] MEDS: LISINOPRIL 20 MG TAB PO SCH (07:42)
[2016-10-24] MEDS: SODIUM CHLORIDE 0.9% FLUSH 10 ML FLUSH IV FLUSH PRN (07:51)
[2016-10-24] MEDS: SODIUM CHLORIDE 0.9% FLUSH 5 ML FLUSH IV FLUSH SCH ×2 (09:00→19:18)
--- NOTE | 2016-10-24 09:45 | HHI.FPPN ---
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 She was diagnosed with pelvic inflammatory disease, and started on IM ceftriaxone, as well as by mouth doxycycline. Her pain was controlled with Toradol, and 1 dose of morphine in the ED. Today, 10/24/2016, her abdominal pain is reduced, and she is tolerating all meals. She feels somewhat sweaty, but has been afebrile for the past 24 hours. She reports that her pain is well controlled on current pain medications. She denies any discharge or vaginal bleeding. She denies any headaches, chest pain , shortness of breath. She reports good compliance with her antihypertensive at home, although she does not remember her dose of carvedilol. She is currently using cocaine multiple times per week. She will seek outpatient rehab treatment for underlying polysubstance abuse. Objective Vitals Vital Signs Date Time Temp Pulse Resp B/P Pulse Ox O2 Delivery O2 Flow Rate FiO2 10/24/16 09:15 80 165/107 10/24/16 08:00 97.3 73 18 158/105 99 10/24/16 04:00 96.8 78 18 163/110 99 10/24/16 00:00 98.1 84 17 158/105 100 10/23/16 20:00 98.9 86 18 157/107 98 10/23/16 18:54 96.5 70 18 168/110 100 10/23/16 18:18 81 17 137/84 99 10/23/16 18:08 16 10/23/16 15:23 98.2 84 16 152/87 98 Room Air 10/23/16 13:30 98.6 84 17 157/86 99 Room Air 10/23/16 11:21 97.8 78 17 159/91 98 Room Air 10/23/16 11:20 17 10/23/16 10:00 98.0 79 17 155/88 99 Room Air 10/23/16 09:50 16 I/O 10/23/16 10/23/16 10/23/16 10/24/16 10/24/16 10/24/16 07:00 15:00 23:00 07:00 15:00 23:00 Intake Total 300 ml 120 ml Output Total 200 ml Balance 300 ml -80 ml Intake Oral 300 ml 120 ml Output Urine Total 200 ml # Voids 1 # Bowel Movements 0 0 Result Diagram: 10/23/1684410/23/16844 Objective Remarks GENERAL: Patient appears comfortable. No acute distress. HEENT: Head atraumatic, PERRL, CN II-XII intact. CARDIOVASCULAR: Regular rate and rhythm, faint S3 gallop, ejection murmur at the left fourth intercostal space. ABDOMINAL: Non-distended, BS present, no HSM, tender to light and deep palpation , no rebound. GENITOURINARY: No CVA tenderness RESPIRATORY: AP diameter within normal limits, no intercostal retractions or nasal flairing, breathing comfortably. Acyanotic. Lung sounds equal to all lobes. No wheezes, no rhonci, or rales. No increased tactile fremitus. NEUROLOGICAL: Speech normal, muscle strength 5/5 throughout. Normal sensation, cerebellar testing wnl, reflexes 2+. PSYCH: Pleasant, no suicidal or homicidal ideation. Alert and oriented x 3. A/P Assessment and Plan 35-year-old female admitted for intractable abdominal pain secondary to pelvic inflammatory disease, testing positive for Trichomonas and gonorrhea. Problem #1: Pelvic inflammatory disease Has received ceftriaxone 250 mg IM 1. Continue with doxycycline 100 mg twice a day, will continue course for 14 days. Flagyl 500 mg twice a day, 14 days for co-infection with Trichomonas. Safe sex practices reviewed with the patient. Tylenol 650 mg when necessary pain 1-10, Toradol 10 mg by mouth every 6 hours for breakthrough. Pending results: HIV, RPR. Problem #2: Cardiomyopathy, with EF of 25% At a stress test in August [address] Orozco which was negative for ischemic ranges. Echocardiogram in 2017 also showed a severely reduced ejection fraction of 25%-30% with an elevated PA peak pressure of 41 mmHg. Her silver miner blasting is Dr. Trejo. She has an appointment in January. Problem #3: Essential hypertension. Blood pressure is poorly controlled with Lasix 40 mg daily, lisinopril 20 mg daily: 165/107. I would recommend stopping her beta blockers at this time as she is currently using crack cocaine, which may lead to excessive alpha-1 activation, leading to high blood pressure and worsening heart disease. Will start amlodipine 5 mg daily, and monitor response. Dispo: If her BP normalizes with the addition of the calcium channel jinny, and her pain is well controlled, she is otherwise stable for discharge with resumption of PO antibiotics for underlying pelvic inflammatory disease. She understands that she will need to take a 14 day course of PO antibiotics. A copy of our documentation will be sent to Dr. Trejo office for follow up and adjustment of antihypertensives. Discussed with Drs. Wooten and Clary. Problem List: (1) Congestive heart failure Status: Acute (2) PID (acute pelvic inflammatory disease) Status: Acute (3) Hypertension Status: Acute (4) Cocaine abuse Status: Acute Jared Nova MD R2 October 24, 2016 09:45
[2016-10-24] MEDS ORDERED: METR500T10 PO (10:11)
[2016-10-24] MEDS ORDERED: DOXY100C PO (10:11)
[2016-10-24] MEDS ORDERED: KETOROLAC TROMETHAMINE 10 MG TAB PO PRN (10:15)
--- NOTE | 2016-10-24 10:17 | HHI.DCPOC ---
Discharge Care Plan Diagnosis: (1) PID (acute pelvic inflammatory disease) (2) Congestive heart failure (3) Hypertension (4) Tobacco abuse (5) Cocaine abuse (6) Cardiomyopathy (7) Alcohol abuse Goals to Promote Your Health * To prevent worsening of your condition and complications * To maintain your health at the optimal level Directions to Meet Your Goals Take your medications as prescribed Follow your dietary instruction Follow activity as directed Keep your appointments as scheduled Take your immunizations and boosters as scheduled If your symptoms worsen call your PCP, if no PCP go to Urgent Care Center or Emergency Room Smoking is Dangerous to Your Health. Avoid second hand smoke Call the 24-hour hour crisis hotline for domestic abuse at Jared Nova MD R2 October 24, 2016 10:17
[2016-10-24] MEDS ORDERED: amLODIPine BESYLATE 5 MG TAB PO ONE ×2 (11:00→15:15)
[2016-10-24] MEDS: ACETAMINOPHEN 325 MG TAB PO PRN (15:43)
[2016-10-24] MEDS: ENOXAPARIN SODIUM 40 MG/0.4 ML SYRINGE SQ SCH (17:48)
[2016-10-24] MEDS ORDERED: ENALAPRILAT 1.25 MG/ML VIAL IV PUSH ONE (18:15)
[2016-10-24] MEDS ORDERED: cloNIDine HCL 0.2 MG TAB PO PRN (18:15)
[2016-10-24] MEDS ORDERED: LORazepam 2 MG TAB PO PRN (18:30)
[2016-10-24] MEDS ORDERED: cloNIDine HCL 0.1 MG TAB PO PRN (18:30)
[2016-10-24] MEDS ORDERED: FLUMAZENIL 0.5 MG/5 ML VIAL IV PUSH PRN (18:30)
[2016-10-24] MEDS ORDERED: LORazepam 2 MG/ML VIAL IV PUSH PRN ×4 (18:30)
[2016-10-24] MEDS ORDERED: SODIUM CHLORIDE 0.9% FLUSH 10 ML FLUSH IV FLUSH PRN (18:30)
[2016-10-24] MEDS ORDERED: LORazepam 1 MG TAB PO PRN (18:30)
--- NOTE | 2016-10-24 18:42 | HHI.FPPN ---
Addendum to progress note ADDENDUM Reason for addendum: Additonal documentation Additional information ANAI called at 1800 hours or elevated blood pressure. Patient is asymptomatic. Per RN, blood pressure was 178/115, this was despite 40 mg Lasix by mouth, lisinopril 20 mg by mouth, as well as 10 mg of amlodipine. Subjective: The patient is feeling well. Still having 7 out of 10 abdominal pain that is not changing in character or in severity. She denies any change in vision, headaches, chest pain, shortness of breath. She is ambulating without difficulty. She is tolerating whole meals. Objective: 12:00 hrs: BP 171/110, Pulse 66. 16:00 hrs BP 178/115, Pulse 66. Gen.: Appears comfortable, no acute distress. Respiratory: Breathing at a normal rate, no accessory muscle use. Cardiovascular: Regular rate and rhythm. Good perfusion to all extremities. GI: Tender to palpation on the lower quadrants, no rebound. Psych: Appears slightly anxious. Assessment and plan: Hypertensive urgency Repeat basic lab chemistry (CBC/CMP) to assess for end organ damage. Vasotec 1.[address] the patient on telemetry. Clonidine 0.1 mg by mouth every 6 hours blood pressure greater than 180/100. Elevated blood pressure may be secondary to alcohol withdrawal (patient reports drinking 8, 16 ounce beers per day for the past several weeks). Will start CIWA protocol with the alcohol AUDIT screening assessment. (Jared Nova MD R2) Reason for addendum: Additonal documentation (Agree with above. Consider transfer to medicine service due to complicated medical condition.) (Tomasa Means MD) Jared Nova MD R2 October 24, 2016 18:42 Tomasa Means MD October 24, 2016 19:48
--- NOTE | 2016-10-24 19:32 | HHI.FPPN ---
Addendum to progress note ADDENDUM Reason for addendum: Additonal documentation Additional information At 19:15 called by RN. After they put the patient on telemetry someone read it as a "Left Bundle Branch block." Stat EKG, Stat Troponin, and Stat CKMB were ordered. I reviewed the telemetry and saw no evidence of LBBB and the EKG was sinus rhythm at [address] segment changes. Patient remains asymptomatic. CIWA protocol was initiated and the patient was given 2 mg Ativan. PLAN: Assess vital q 20 minutes. Consult Medical service. dw Dr. Means. (Jared Nova MD R2) Attestation Agree with above. Will continue to manage at this time. Appreciate medicine co-management of this patient. (Tomasa Means MD) Jared Nova MD R2 October 24, 2016 19:32 Tomasa Means MD October 24, 2016 21:14
[2016-10-24] MEDS ORDERED: cloNIDine HCL 0.1 MG TAB PO ONE ×2 (19:45→21:30)
[2016-10-24 20:00] LABS: CREATINE KINASE 311 U/L (26-192)
[2016-10-24 20:12] LABS: CKMB 1.5 NG/ML (0.5-3.6)
[2016-10-24] MEDS ORDERED: SODIUM CHLORIDE 0.9% FLUSH 10 ML FLUSH IV FLUSH SCH (21:00)
[2016-10-24 23:00] LABS: AUTOMATED NEUTROPHIL # 10.4 TH/MM3 (1.8-7.7); BASOPHIL # 0.1 TH/MM3 (0-0.2); BASOPHIL % 0.7 % (0.0-2.0); EOSINOPHIL # 0.1 TH/MM3 (0-0.4); EOSINOPHIL % 0.6 % (0.0-4.0); HEMATOCRIT 38.5 % (35.0-46.0); HEMO FLAGS DIFF FINAL; LYMPH % 4.2 % (9.0-44.0); LYMPHOCYTE # 0.5 TH/MM3 (1.0-4.8); MEAN CELL VOLUME 81.9 FL (80.0-100.0); MEAN CORPUSCULAR HEMOGLOBIN 26.2 PG (27.0-34.0); MEAN CORPUSCULAR HGB CONC 31.9 % (32.0-36.0); MONO % 2.9 % (0.0-8.0); NEUT % 91.6 % (16.0-70.0); PLATELET COUNT 232 TH/MM3 (150-450); RED CELL DISTRIBUTION WIDTH 18.1 % (11.6-17.2); WHITE BLOOD COUNT 11.3 TH/MM3 (4.0-11.0)
[2016-10-24 23:28] LABS: ALKALINE PHOSPHATASE 92 U/L (45-117); ALT (GPT) 28 U/L (10-53); ANION GAP 8 MEQ/L (5-15); AST (GOT) 35 U/L (15-37); BLOOD UREA NITROGEN 12 MG/DL (7-18); CHLORIDE 106 MEQ/L (98-107); GLOMERULAR FILTRATION RATE 91 ML/MIN (>89); POTASSIUM 3.6 MEQ/L (3.5-5.1); SODIUM (NA) 140 MEQ/L (136-145); TOTAL BILIRUBIN ADULT 0.4 MG/DL (0.2-1.0)
[2016-10-25] MEDS: metroNIDAZOLE 500 MG INJ 100 ML IV SCH ×2 (01:13→08:53)
[2016-10-25] MEDS: ACETAMINOPHEN 325 MG TAB PO PRN ×2 (01:13→08:58)
[2016-10-25 02:30] VITALS: BP 154/100; PULSE 45; RESP 18; O2SAT 97
[2016-10-25] MEDS: traMADol HCL 50 MG TAB PO PRN ×3 (02:42→18:21)
[2016-10-25] MEDS: DOXYCYCLINE HYCLATE 100 MG CAP PO SCH ×2 (06:25→17:50)
[2016-10-25 07:54] LABS: AUTOMATED NEUTROPHIL # 6.8 TH/MM3 (1.8-7.7); BASOPHIL # 0.1 TH/MM3 (0-0.2); BASOPHIL % 0.8 % (0.0-2.0); EOSINOPHIL # 0.2 TH/MM3 (0-0.4); EOSINOPHIL % 1.8 % (0.0-4.0); HEMATOCRIT 38.5 % (35.0-46.0); HEMO FLAGS DIFF FINAL; LYMPH % 12.8 % (9.0-44.0); LYMPHOCYTE # 1.1 TH/MM3 (1.0-4.8); MEAN CORPUSCULAR HEMOGLOBIN 26.4 PG (27.0-34.0); MEAN CORPUSCULAR HGB CONC 32.1 % (32.0-36.0); MONO % 3.5 % (0.0-8.0); NEUT % 81.1 % (16.0-70.0); PLATELET COUNT 223 TH/MM3 (150-450); RED CELL DISTRIBUTION WIDTH 18.4 % (11.6-17.2); WHITE BLOOD COUNT 8.4 TH/MM3 (4.0-11.0)
[2016-10-25 08:00] VITALS: BP_SYST 161; BP_SYST 176; BP_DIAS 111; BP_DIAS 117; PULSE 57; RESP 15; TEMP 96.9; O2SAT 99
[2016-10-25 08:13] LABS: BICARBONATE 26.4 MEQ/L (21.0-32.0); POTASSIUM 3.2 MEQ/L (3.5-5.1)
[2016-10-25 08:30] VITALS: PULSE 48
[2016-10-25] MEDS: LISINOPRIL 20 MG TAB PO SCH (08:54)
[2016-10-25] MEDS: FUROSEMIDE 40 MG TAB PO SCH (08:54)
[2016-10-25] MEDS: SODIUM CHLORIDE 0.9% FLUSH 5 ML FLUSH IV FLUSH SCH (08:55)
[2016-10-25] MEDS ORDERED: FOLIC ACID 1 MG TAB PO SCH (09:00)
[2016-10-25] MEDS ORDERED: THIAMINE HCL 100 MG TAB PO SCH (09:00)
[2016-10-25] MEDS ORDERED: MULTIVITAMINS/MINERALS THERAPEUTIC TAB PO SCH (09:00)
--- NOTE | 2016-10-25 09:18 | HHI.FPPN ---
Subjective Remarks Pt seen and examined this morning. No acute events overnight. BP ranging from [id number], heart rate 40s60s. Abdominal pain is significantly improved. She denies nausea, vomiting, diarrhea. She reports feeling significantly improved this morning. She reports that she has participated in alcohol rehabilitation in the past and declines further resources at this time. (Saw Trejo MD R2) Objective Vitals Vital Signs Date Time Temp Pulse Resp B/P Pulse Ox O2 Delivery O2 Flow Rate FiO2 10/25/16 08:00 96.9 57 15 176/117 99 161/111 10/25/16 02:30 45 18 154/100 97 10/24/16 22:04 55 168/115 98 10/24/16 20:40 59 180/120 10/24/16 20:16 61 10/24/16 19:43 165/120 10/24/16 19:40 97.9 65 168/122 99 10/24/16 19:35 170/116 10/24/16 19:25 182/122 10/24/16 18:00 178/122 10/24/16 16:00 97.5 66 18 178/115 99 10/24/16 12:00 96.8 66 18 171/110 98 10/24/16 09:15 80 165/107 I/O 10/24/16 10/24/16 10/24/16 10/25/16 10/25/16 10/25/16 07:00 15:00 23:00 07:00 15:00 23:00 Intake Total 120 ml 845 ml 480 ml 480 ml Output Total 200 ml Balance -80 ml 845 ml 480 ml 480 ml Intake Oral 120 ml 720 ml 480 ml 480 ml IV Total 125 ml Output Urine Total 200 ml # Voids 3 1 2 # Bowel Movements 0 1 0 0 (Saw Trejo MD R2) Result Diagram: 10/25/16 0640 10/25/16 0640 Objective Remarks GENERAL: Patient resting in bed, in no acute distress. HEENT: Head atraumatic, PERRL, CN II-XII intact. CARDIOVASCULAR: Regular rate and rhythm, faint S3 gallop, ejection murmur at the left fourth intercostal space. ABDOMINAL: Non-distended, BS present, no HSM, patient with mild suprapubic tenderness, positive rebound, significantly improved from admission. RESPIRATORY: AP diameter within normal limits, no intercostal retractions or nasal flairing, breathing comfortably. Acyanotic. Lung sounds equal to all lobes. No wheezes, no rhonci, or rales. No increased tactile fremitus. NEUROLOGICAL: Speech normal. PSYCH: Pleasant, no suicidal or homicidal ideation. Alert and oriented x 3. ( Saw Trejo MD R2) A/P Assessment and Plan 35-year-old female admitted for intractable abdominal pain secondary to pelvic inflammatory disease, testing positive for Trichomonas and gonorrhea, found to have uncontrolled elevated blood pressures. Problem #1: Pelvic inflammatory disease Has received ceftriaxone 250 mg IM 1. Continue with doxycycline 100 mg twice a day, will continue course for 14 days. Flagyl 500 mg twice a day, 14 days for co-infection with Trichomonas. Tylenol 650 mg when necessary pain 1-10, Toradol 10 mg by mouth every 6 hours for breakthrough. Pending results: HIV, RPR. Problem #2: Cardiomyopathy, with EF of 25% At a stress test in August [address] Orozco which was negative for ischemic ranges. Echocardiogram in 2017 also showed a severely reduced ejection fraction of 25%-30% with an elevated PA peak pressure of 41 mmHg. Her diet clerk is Dr. Trejo. She has an appointment in January. Problem #3: Essential hypertension. Blood pressure is poorly controlled with Lasix 40 mg daily, lisinopril 20 mg daily Beta jinny held due to current cocaine use. Pt given amlodipine 5 mg 2 on 10/24 with minimal improvement in blood pressure Hospitalist consulted for further medical management, appreciate recommendations Problem #3: Cocaine abuse Patient declined rehabilitation, she has had previous outpatient rehabilitation and is aware of community resources. Patient reports that she would most likely benefit from inpatient rehabilitation Dispo: If her BP normalizes, and her pain is well controlled, she is otherwise stable for discharge with resumption of PO antibiotics for underlying pelvic inflammatory disease. She understands that she will need to take a 14 day course of PO antibiotics. A copy of our documentation will be sent to Dr. Trejo office for follow up and adjustment of antihypertensives. Seen and discussed with Dr. Ritu Jackson (Saw Trejo MD R2) Attending Attestation Awaiting medicine consult. BPs in severe range. 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 Pt seen and evaluated with Dr. Trejo and Dr. Chaney (Tomasa Means MD) Problem List: (1) Congestive heart failure Status: Acute (2) PID (acute pelvic inflammatory disease) Status: Acute (3) Hypertension Status: Acute (4) Cocaine abuse Status: Acute (Saw Trejo MD R2) Saw Trejo MD R2 October 25, 2016 09:18 Tomasa Means MD October 25, 2016 10:12
[2016-10-25 12:00] VITALS: BP 164/107; PULSE 51; RESP 15; TEMP 96.2; O2SAT 99
[2016-10-25] MEDS ORDERED: NIFEdipine 60 MG SUSTAINED RELEASE TAB PO SCH (12:15)
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
[2016-10-25 13:07] VITALS: BP 164/107; PULSE 51; RESP 15; TEMP 96.2; O2SAT 99
--- NOTE | 2016-10-25 14:38 | EKG ---
Date Performed: 10/24/2016 Time Performed: 19:23:36 PTAGE: 35 years EKG: Sinus rhythm LVH with repolarization abnormality Minor variation in the repolarization changes compard to the karen or tracing ABNORMAL ECG PREVIOUS TRACING : 08/23/2016 18.10 DOCTOR: Salvador Fox Interpretating Date/Time 10/25/2016 14:38:17
[2016-10-25 16:00] VITALS: BP 149/103; PULSE 77; RESP 12; TEMP 97.1; O2SAT 100
--- NOTE | 2016-10-25 16:13 | RADRPT ---
EXAM DATE/TIME: 10/25/2016 14:01 [facility] COMPARISON: No previous studies available for comparison. INDICATIONS : Shortness of breath. Congestive heart failure. MEDICAL HISTORY : Congestive heart failure. Hypertension. Hepatitis C. SURGICAL HISTORY : None. ENCOUNTER: Initial ACUITY: 1 day PAIN SCORE: 0/10 LOCATION: Bilateral chest FINDINGS: PA and lateral views of the chest demonstrate the lungs to be symmetrically aerated without evidence of mass, infiltrate or effusion. The cardiomediastinal contours are unremarkable. Osseous structure s are intact. CONCLUSION: No acute disease. Jax Mar MD on October 25, 2016 at 16:11 Board Certified Radiologist. This report was verified electronically.
[2016-10-25] MEDS ORDERED: metroNIDAZOLE 500 MG TAB PO SCH (17:00)
[2016-10-25] MEDS: ENOXAPARIN SODIUM 40 MG/0.4 ML SYRINGE SQ SCH (17:50)
[2016-10-25] MEDS ORDERED: NICOTINE 7 MG/24 HR PATCH T-DERMAL ONE (18:15)
[2016-10-25] MEDS ORDERED: LISINOPRIL 20 MG TAB PO SCH (21:00)
[2016-10-26] MEDS ORDERED: REMOVE OLD PATCH T-DERMAL ONE (09:00)
== END 2016-10-25 19:00 | disposition left against medical advice (07) | DRG 758 ==
LOC: NEPE 08:17 → NEDA 14:05 → HOCA 18:49
PROVIDERS: ADMIT Obstetrics & Gynecology; ATTEND Obstetrics & Gynecology
DX: N73.0 Acute parametritis and pelvic cellulitis (principal); I42.9 Cardiomyopathy, unspecified; G70.9 Myoneural disorder, unspecified; I11.0 Hypertensive heart disease with heart failure; I50.9 Heart failure, unspecified; A59.9 Trichomoniasis, unspecified; A54.02 Gonococcal vulvovaginitis, unspecified; I10 Essential (primary) hypertension; F14.10 Cocaine abuse, uncomplicated; F17.210 Nicotine dependence, cigarettes, uncomplicated; B19.20 Unspecified viral hepatitis C without hepatic coma; H40.9 Unspecified glaucoma; D25.9 Leiomyoma of uterus, unspecified; I16.0 Hypertensive urgency
CPT/HCPCS: 71020; 76830; 76856; 80048; 80053; 81001; 82550; 82552; 82948; 83605; 83690; 84484; 84703; 85025; 86592; 86703; 87086; 87210; 87491; 87591; 93005; 96361; 96374; 96375; J0696; J1650; J1885; J2060; J2270; J2405; J7030

== ENCOUNTER 2016-12-09 18:50 | Emergency (ER) | payer MEDICAID ==
[~2016-12-09] VITALS: Ht 177.8 cm; Wt 65.0 kg
[~2016-12-09 18:50] MED LIST changes: +DOXY100C PO; +METR500T10 PO
[2016-12-09 19:00] VITALS: TEMP 98.5
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
[2016-12-09] MEDS ORDERED: SODIUM CHLORIDE 0.9% FLUSH 10 ML FLUSH IVF PRN (19:45)
[2016-12-09 20:00] VITALS: BP 132/156; PULSE 80; RESP 18; O2SAT 97
--- NOTE | 2016-12-09 20:09 | RADRPT ---
EXAM DATE/TIME: 12/09/2016 19:41 [facility] COMPARISON: CHEST SINGLE AP, August 23, 2016, 9:31. INDICATIONS : Chest pain MEDICAL HISTORY : Congestive heart failure. Hypertension Hepatitis C. SURGICAL HISTORY : None. ENCOUNTER: Initial ACUITY: 1 day PAIN SCORE: 0/10 LOCATION: chest FINDINGS: A single view of the chest demonstrates the lungs to be symmetrically aerated without evidence of mas s, infiltrate or effusion. The cardiomediastinal contours are unremarkable. Osseous structures are intact. CONCLUSION: The lungs are clear. Rony Spencer MD on December 09, 2016 at 20:06 Board Certified Radiologist. This report was verified electronically.
[2016-12-09] MEDS ORDERED: ACETAMINOPHEN 325 MG TAB PO ONE (20:15)
[2016-12-09 20:19] LABS: AUTOMATED NEUTROPHIL # 5.3 TH/MM3 (1.8-7.7); BASOPHIL # 0.1 TH/MM3 (0-0.2); BASOPHIL % 0.8 % (0.0-2.0); EOSINOPHIL % 0.3 % (0.0-4.0); HEMATOCRIT 41.7 % (35.0-46.0); HEMO FLAGS DIFF FINAL; LYMPH % 19.5 % (9.0-44.0); LYMPHOCYTE # 1.4 TH/MM3 (1.0-4.8); MEAN CELL VOLUME 81.6 FL (80.0-100.0); MEAN CORPUSCULAR HEMOGLOBIN 26.9 PG (27.0-34.0); MEAN CORPUSCULAR HGB CONC 32.9 % (32.0-36.0); MONO % 6.7 % (0.0-8.0); NEUT % 72.7 % (16.0-70.0); PLATELET COUNT 247 TH/MM3 (150-450); RED BLOOD COUNT 5.11 MIL/MM3 (4.00-5.30); WHITE BLOOD COUNT 7.3 TH/MM3 (4.0-11.0)
[2016-12-09 20:32] LABS: ANION GAP 9 MEQ/L (5-15); BICARBONATE 25.4 MEQ/L (21.0-32.0); BLOOD UREA NITROGEN 11 MG/DL (7-18); CHLORIDE 102 MEQ/L (98-107); GLOMERULAR FILTRATION RATE 85 ML/MIN (>89); INTERNATIONAL NORMALIZED RATIO 0.9 RATIO; MAGNESIUM 1.9 MG/DL (1.5-2.5); POTASSIUM 3.7 MEQ/L (3.5-5.1); PROTHROMBIN TIME - PATIENT 10.1 SEC (9.8-11.6); SODIUM (NA) 136 MEQ/L (136-145)
[2016-12-09 20:36] LABS: CREATINE KINASE 163 U/L (26-192)
[2016-12-09 20:48] LABS: CKMB 2.4 NG/ML (0.5-3.6)
[2016-12-09 21:00] VITALS: BP 160/113; PULSE 92; RESP 18; O2SAT 98
[2016-12-09 21:46] VITALS: BP_SYST 179; BP_SYST 187; BP_DIAS 102; BP_DIAS 128; PULSE 75; RESP 18; O2SAT 98
[2016-12-09 23:54] VITALS: BP 198/121; PULSE 72; RESP 18; O2SAT 100
--- NOTE | 2016-12-09 23:54 | PD ---
Physical Exam Narrative I, Dr. Madden, have reviewed the advance practice practitioner's documentation and am in agreement, met with the patient face to face, made the diagnosis, and the medical decision making was done by me. *My assessment and Findings: Patient is a 35-year-old female who experienced chest pain after using cocaine tonight. She says she got scared, so she called 911. Exam shows no abnormalities. Lungs are clear to auscultation, heart is regular in rate and rhythm. There is no edema of the legs. Data Data Last Documented VS Vital Signs Date Time Temp Pulse Resp B/P Pulse Ox O2 Delivery O2 Flow Rate FiO2 12/09/16 21:46 18 100 Room Air 12/09/16 21:46 75 187/128 179/102 12/09/16 19:00 98.5 Orders Electrocardiogram (12/09/16 19:44) Basic Metabolic Panel (Bmp) (12/09/16 19:44) Ckmb (Isoenzyme) Profile (12/09/16 19:44) Complete Blood Count With Diff (12/09/16 19:44) Magnesium (Mg) (12/09/16 19:44) Prothrombin Time / Inr (Pt) (12/09/16 19:44) Act Partial Throm Time (Ptt) (12/09/16 19:44) Troponin I (12/09/16 19:44) Chest, Single Ap (12/09/16 19:44) Ecg Monitoring (12/09/16 19:44) Bilateral Bp Monitoring (12/09/16 19:44) Iv Access Insert/Monitor (12/09/16 19:44) Oximetry (12/09/16 19:44) Oxygen Administration (12/09/16 19:44) Sodium Chloride 0.9% Flush (Ns Flush) (12/09/16 19:45) Ed Urine Pregnancytest Poc (12/09/16 19:44) Acetaminophen (Tylenol) (12/09/16 20:15) CKMB (12/09/16 19:59) CKMB% (12/09/16 19:59) Troponin I (12/09/16 22:59) Labs Laboratory Tests Test 12/09/16 12/09/16 19:59 22:25 White Blood Count 7.3 TH/MM3 Red Blood Count 5.11 MIL/MM3 Hemoglobin 13.7 GM/DL Hematocrit 41.7 % Mean Corpuscular Volume 81.6 FL Mean Corpuscular Hemoglobin 26.9 PG Mean Corpuscular Hemoglobin 32.9 % Concent Red Cell Distribution Width 17.0 % Platelet Count 247 TH/MM3 Mean Platelet Volume 8.9 FL Neutrophils (%) (Auto) 72.7 % Lymphocytes (%) (Auto) 19.5 % Monocytes (%) (Auto) 6.7 % Eosinophils (%) (Auto) 0.3 % Basophils (%) (Auto) 0.8 % Neutrophils # (Auto) 5.3 TH/MM3 Lymphocytes # (Auto) 1.4 TH/MM3 Monocytes # (Auto) 0.5 TH/MM3 Eosinophils # (Auto) 0.0 TH/MM3 Basophils # (Auto) 0.1 TH/MM3 CBC Comment DIFF FINAL Differential Comment Prothrombin Time 10.1 SEC Prothromb Time International 0.9 RATIO Ratio Activated Partial 27.0 SEC Thromboplast Time Sodium Level 136 MEQ/L Potassium Level 3.7 MEQ/L Chloride Level 102 MEQ/L Carbon Dioxide Level 25.4 MEQ/L Anion Gap 9 MEQ/L Blood Urea Nitrogen 11 MG/DL Creatinine 0.92 MG/DL Estimat Glomerular Filtration 85 ML/MIN Rate Random Glucose 82 MG/DL Calcium Level 9.7 MG/DL Magnesium Level 1.9 MG/DL Total Creatine Kinase 163 U/L Creatine Kinase MB 2.4 NG/ML Troponin I LESS THAN 0.02 LESS THAN 0.02 NG/ML NG/ML [facility] Supervised Visit with SANDRA: Yes Interpretation(s) ECG shows normal sinus rhythm, no ST elevation or depression, prolonged QT. Narrative Course Patient is a 35-year-old female comes in complaining of chest pain after using cocaine tonight. IV established, labs sent. 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 Labs, including troponin show no acute abnormalities. There are no signs of ischemia on her EKG. Second troponin drawn 3 hours after the first is also negative. Patient is asymptomatic at this time. She is advised to stop using cocaine. She is offered admission, but declines at this time. She is advised to return to the emergency department as needed for any worsening symptoms. Diagnosis Primary Impression: Chest pain Qualified Code: R07.9 - Chest pain, unspecified type Additional Impression: Cocaine abuse Patient Instructions: General Instructions Additional Instruction: Please refrain from using illicit drugs. Please return to emergency department if your symptoms return or worsen. Follow up with your primary care provider. Disposition: 01 DISCHARGE HOME Condition: Stable Karina Madden MD Dec 09, 2016 23:54
[2016-12-10] MEDS ORDERED: LISINOPRIL 20 MG TAB PO ONE
--- NOTE | 2016-12-10 13:44 | EKG ---
Date Performed: 12/09/2016 Time Performed: 19:46:50 PTAGE: 35 years EKG: Sinus rhythm POSSIBLE LEFT VENTRICULAR HYPERTROPHY NONSPECIFIC T-WAVE ABNORMALITY PROLONGED QT INTERVAL ABNORMAL ECG Compared to prior tracing no significant change PREVIOUS TRACING : 10/24/2016 19.23 DOCTOR: Jay Trejo Interpretating Date/Time 12/10/2016 13:42:25
== END 2016-12-10 00:39 | disposition home or self-care (01) ==
LOC: NEPE 18:50
DX: R07.9 Chest pain, unspecified (principal); F14.10 Cocaine abuse, uncomplicated; I50.9 Heart failure, unspecified; B19.20 Unspecified viral hepatitis C without hepatic coma; I11.0 Hypertensive heart disease with heart failure; Z72.0 Tobacco use; R94.31 Abnormal electrocardiogram [ECG] [EKG]
CPT/HCPCS: 71010; 80048; 82550; 82552; 83735; 84484; 84703; 85025; 85610; 85730; 93005

== ENCOUNTER 2017-02-16 02:54 | Emergency (ER) | payer MEDICAID ==
[~2017-02-16] VITALS: Ht 177.8 cm; Wt 65.0 kg
[2017-02-16 02:56] VITALS: BP 173/115; PULSE 82; RESP 16; TEMP 98.7; O2SAT 98
[2017-02-16] MEDS ORDERED: CARV25TA PO (03:22)
[2017-02-16 03:24] VITALS: BP 161/112; PULSE 69; RESP 18; O2SAT 98
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
[2017-02-17] MEDS ORDERED: HYDR-3533 PO (10:49)
[2017-02-17] MEDS ORDERED: OCUF0.3D LEFT EYE (10:49)
== END 2017-02-16 05:03 | disposition home or self-care (01) ==
LOC: NEPD 02:54
DX: S00.83XA Contusion of other part of head, initial encounter (principal); H40.32X0 Glaucoma secondary to eye trauma, left eye, stage unspecified; Y04.0XXA Assault by unarmed brawl or fight, initial encounter
CPT/HCPCS: 99282

== ENCOUNTER 2017-02-17 08:29 | Emergency (ER) | payer MEDICAID ==
[~2017-02-17] VITALS: Ht 157.5 cm; Wt 65.0 kg
[~2017-02-17 08:29] MED LIST changes: +CARV25TA PO; -DOXY100C PO; -METR500T10 PO
[2017-02-17 08:30] VITALS: BP 168/111; PULSE 80; RESP 20; TEMP 98.6; O2SAT 98
[2017-02-17] MEDS ORDERED: ACETAMINOPHEN/HYDROcodone 325 MG/5 MG TAB PO ONE (09:00)
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
[2017-02-17] MEDS ORDERED: TETRACAINE 0.5% OPTH SOLN 4 ML BTL LEFT EYE ONE (09:30)
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
[2017-02-17] MEDS ORDERED: FLUORESCEIN SOD 1 MG STRIP EACH EYE ONE (10:30)
[2017-02-17] MEDS ORDERED: OCUF0.3D LEFT EYE (10:49)
[2017-02-17] MEDS ORDERED: HYDR-3533 PO (10:49)
[2017-02-17 11:10] VITALS: BP 147/89
== END 2017-02-17 11:11 | disposition home or self-care (01) ==
LOC: NEPC 08:29
DX: H57.12 Ocular pain, left eye (principal); Y04.0XXA Assault by unarmed brawl or fight, initial encounter; H40.9 Unspecified glaucoma
CPT/HCPCS: 70486; 99285

== ENCOUNTER 2017-04-17 20:36 | Emergency (ER) | payer MEDICAID ==
[~2017-04-17] VITALS: Ht 177.8 cm; Wt 65.0 kg
[~2017-04-17 20:36] MED LIST changes: +HYDR-3533 PO; +OCUF0.3D LEFT EYE
[2017-04-17 20:39] VITALS: BP 152/99; PULSE 116; RESP 16; TEMP 97.9; O2SAT 99
--- NOTE | 2017-04-17 21:54 | RADRPT ---
EXAM DATE/TIME: 04/17/2017 21:23 [facility] COMPARISON: No previous studies available for comparison. INDICATIONS : Left foot 5th toe pain, tripped on power cord MEDICAL HISTORY : Cardiovascular disease. Hypertension. Hepatitis C. SURGICAL HISTORY : None. ENCOUNTER: Initial ACUITY: 1 day PAIN SCORE: 8/10 LOCATION: Left Foot FINDINGS: 3 views of the left foot demonstrate an oblique mildly displaced fracture of the fifth digit proximal phalanx in the mid diaphysis. The distal fragment is displaced medially by 3 mm with slight angulati on. Fracture line extends into the epiphysis and into the adjacent metatarsophalangeal joint. No othe r fracture is identified. Lisfranc joint is intact. CONCLUSION: Oblique mildly displaced fracture of the fifth digit proximal phalanx, as above. Nicolas Victor MD on April 17, 2017 at 21:50 Board Certified Radiologist. This report was verified electronically.
== END 2017-04-17 23:16 | disposition left against medical advice (07) ==
LOC: NED 20:36
DX: M79.672 Pain in left foot (principal); Z53.21 Procedure and treatment not carried out due to patient leaving prior to being seen by health care provider
CPT/HCPCS: 73630; 99281

== ENCOUNTER 2017-09-08 15:00 | Emergency (ER) | payer SELFPAY ==
[2017-09-08 15:16] VITALS: BP 177/113; PULSE 69; RESP 20; TEMP 99.2; O2SAT 100
[2017-09-09] MEDS ORDERED: BACT800T5 PO (05:33)
[2017-09-09] MEDS ORDERED: CLIN300C5 PO (05:33)
[2017-09-09] MEDS ORDERED: IBUP-232 PO (05:34)
== END 2017-09-08 16:42 | disposition left against medical advice (07) ==
LOC: NED 15:00
DX: L98.9 Disorder of the skin and subcutaneous tissue, unspecified (principal); I10 Essential (primary) hypertension; Z53.21 Procedure and treatment not carried out due to patient leaving prior to being seen by health care provider
CPT/HCPCS: 99281

== ENCOUNTER 2017-09-09 02:34 | Emergency (ER) | payer SELFPAY ==
[~2017-09-09] VITALS: Ht 165.1 cm; Wt 75.0 kg
[2017-09-09 03:18] VITALS: BP 183/116; PULSE 89; RESP 16; TEMP 98.9; O2SAT 98
[2017-09-09] MEDS ORDERED: LIDOCAINE 2%/EPINEPHrine 1:100,000 20ML MDV NERV BLOCK ONE (04:00)
[2017-09-09] MEDS ORDERED: VANCOMYCIN INJ 1,000 MG in SODIUM CHLOR 0.9% 250 ML INJ 250 ML IV ONE (04:00)
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
[2017-09-09 04:48] LABS: AUTOMATED NEUTROPHIL # 6.5 TH/MM3 (1.8-7.7); BASOPHIL # 0.1 TH/MM3 (0-0.2); EOSINOPHIL % 0.4 % (0.0-4.0); HEMATOCRIT 39.4 % (35.0-46.0); HEMOGLOBIN 13.6 GM/DL (11.6-15.3); LYMPH % 21.4 % (9.0-44.0); MEAN CELL VOLUME 79.3 FL (80.0-100.0); MEAN CORPUSCULAR HEMOGLOBIN 27.3 PG (27.0-34.0); MEAN CORPUSCULAR HGB CONC 34.5 % (32.0-36.0); MEAN PLATELET VOLUME 8.9 FL (7.0-11.0); MONO % 9.1 % (0.0-8.0); MONOCYTE # 0.9 TH/MM3 (0-0.9); NEUT % 68.1 % (16.0-70.0); PLATELET COUNT 287 TH/MM3 (150-450); RED BLOOD COUNT 4.97 MIL/MM3 (4.00-5.30); WHITE BLOOD COUNT 9.5 TH/MM3 (4.0-11.0)
[2017-09-09 04:51] LABS: AST (GOT) 52 U/L (15-37); BICARBONATE 26.8 MEQ/L (21.0-32.0); BLOOD UREA NITROGEN 9 MG/DL (7-18); CALCIUM 9.4 MG/DL (8.5-10.1); CHLORIDE 104 MEQ/L (98-107); CREATININE 1.08 MG/DL (0.50-1.00); GLOMERULAR FILTRATION RATE 70 ML/MIN (>89); GLUCOSE,RANDOM 67 MG/DL (74-106); SODIUM (NA) 137 MEQ/L (136-145)
[2017-09-09 04:52] LABS: ALT (GPT) 51 U/L (10-53)
[2017-09-09 04:55] LABS: ALKALINE PHOSPHATASE 100 U/L (45-117); TOTAL BILIRUBIN ADULT 0.6 MG/DL (0.2-1.0); TOTAL PROTEIN 8.8 GM/DL (6.4-8.2)
[2017-09-09] MEDS ORDERED: SODIUM CHLOR 0.9% 1000 ML INJ 1,000 ML IV ONE (05:15)
[2017-09-09] MEDS ORDERED: BACT800T5 PO (05:33)
[2017-09-09] MEDS ORDERED: CLIN300C5 PO (05:33)
[2017-09-09] MEDS ORDERED: IBUP-232 PO (05:34)
== END 2017-09-09 05:59 | disposition home or self-care (01) ==
LOC: NEPE 02:34
DX: L02.414 Cutaneous abscess of left upper limb (principal); L03.114 Cellulitis of left upper limb; I11.0 Hypertensive heart disease with heart failure; I50.9 Heart failure, unspecified; G47.30 Sleep apnea, unspecified; F17.200 Nicotine dependence, unspecified, uncomplicated; F14.90 Cocaine use, unspecified, uncomplicated; H40.9 Unspecified glaucoma; Z86.19 Personal history of other infectious and parasitic diseases
CPT/HCPCS: 10061; 80053; 85025; 86403; 87040; 87070; 96365; 99284; J3370; J7030; J7050